=== PATIENT | female | born 1985 | race Caucasian/White ===

== ENCOUNTER 2021-02-15 09:09 | Emergency (ER) | payer MEDICAID, SELFPAY ==
[2021-02-15 09:10] VITALS: BP 156/69; PULSE 68; RESP 20; TEMP 37; O2SAT 100; BMI 27.4
--- NOTE | 2021-02-15 09:17 | [facility].EDGENADL ---
ED Disposition Clinical Impression: Vaginal bleeding Disposition: Home, Self-Care Condition on Discharge: Fair Instructions: DI for Vaginal Bleeding Additional Instructions: You have been evaluated for vaginal bleeding. Blood test today is negative. Please follow-up with your [facility] in 24 to 48 hours for recheck. Return to the emergency department if you have any new or worsening symptoms, pain, syncope, worsening bleeding, other concerns. Referrals: PCP,No [Primary Care Provider] - Time of Disposition: 10:05 - Critical Care Critical Care Time: No Attestation: On 02/15/21, the high probability of a clinically significant, sudden or life threatening deterioration of the following system(s) required my full and direct attention, intervention and personal management. The time I documented below is in addition to time spent performing reported procedures but includes the following listed in this critical care notation. Medical Decision Making - Medical Records Medical records reviewed: Yes: I reviewed the patient's medical records. - Rickey Inquiry Pt receiving controlled substance: No Vital Signs: 02/15/21 09:10 Temperature 98.6 F Temperature Source Oral Pulse Rate [Left Radial] 68 Respiratory Rate 20 Blood Pressure [Right Arm] 156/69 H Blood Pressure Mean [Right Arm] 98 Blood Pressure Source [Right Arm] Automatic Cuff Blood Pressure Position [Right Arm] Sitting 02 Sat by Pulse Oximetry 100 Oxygen Delivery Method Room Air - Lab Data Lab Results 02/15/21 09:20: WBC 11.8 H, RBC 4.85, Hgb 14.2, Hct 41.8, MCV 86.1, MCH 29.3, MCHC 34.0, RDW 13.7, Plt Count 382, MPV 6.9 L, Neut % (Auto) 72.3, Lymph % (Auto) 22.0, Lea % (Auto) 3.4, Eos % (Auto) 2.0, Baso % (Auto) 0.3, Neut # (Auto) 8.5 H, Lymph # (Auto) 2.6, Lea # (Auto) 0.4, Eos # (Auto) 0.2, Baso # (Auto) 0.0 02/15/21 09:20: Serum HCG, Qual Negative 02/15/21 09:20: Blood Type A Positive 02/15/21 09:25: Urine Color Yellow, Urine Appearance Cloudy, Urine pH 5.5, Ur Specific Harbinger >= 1.030, Urine Protein Negative, Urine Glucose (UA) Negative, Urine Ketones Negative, Urine Blood 3+, Urine Nitrate Negative, Urine Bilirubin Negative, Urine Urobilinogen 0.2, Ur Leukocyte Esterase Trace, Urine RBC 20-50, Urine WBC Occasional, Ur Squamous Epith Cells 10-20, Urine Bacteria None 02/15/21 09:25: Urine HCG, Qual Negative Result diagrams: 02/15/21 09:20 Orders (Tests/Meds): ORDERS Category Date Time Status Type and Screen Stat BBK 02/15/21 09:20 Results Medical Decision Narrative: In summary this is a 35-year-old G2, P1 female presenting to the emergency department with vaginal spotting. Patient clinically stable on arrival. Vital signs within normal limits. Concern for implantation bleed, intrauterine , threatened miscarriage, normal menses, extrauterine . Will obtain CBC, type and screen, qualitative hCG, urinalysis. Urinalysis shows few red blood cells. No infection. Urine negative. Serum beta hCG negative. Laboratory results show no significant anemia or other abnormality. Patient counseled on the findings, she does not appear to be at this time. Recommended close follow up with OBGYN. Stable for discharge. General Adult HPI - General Stated complaint: 5 weeks and bleeding Time Seen by Provider: 02/15/21 09:17 Mode of Arrival: Ambulatory Source of Information: Patient Limitations: No Limitations - History of Present Illness HPI narrative: 35-year-old female presenting to the emergency department with vaginal bleeding. Symptoms started this morning. Initially was a few spots of brownish blood. Then was enough to fill a menstrual pad. She is 5 weeks by home test and last menstrual period. Last menses was mid December. She is . Has not had her confirmed by ultrasound. No abdominal cramping. No pain. Some nausea over the last few days.
[2021-02-15 09:33] LABS: Microscopic, Urine URINE MICROSCOPIC (MICROSCOPIC)
[2021-02-15 09:36] LABS: Appearance,Urine CLOUDY (Clear); Bilirubin,Urine Negative (Negative); Blood, Urine 3+ (Negative); Color,Urine YELLOW (Yellow); Glucose,Urine (UA) Negative (Negative); Ketones,Urine Negative (Negative); Leukocyte Esterase,Urine TRACE (Negative); Nitrate,Urine Negative (Negative); PH,Urine 5.5 (5.0-8.5); Protein,Urine Negative (Negative); Specific Gravity, Urine >= 1.030 (1.005-1.030); Urobilinogen,Urine 0.2 EU/dl (0.2)
[2021-02-15 09:38] LABS: Basophils % 0.3 % (0.1-2.0); Eosinophils # 0.2 K/mm3 (0.0-0.4); Hematocrit 41.8 % (37.0-47.0); Hemoglobin 14.2 g/dL (12.2-16.2); Lymphocytes # 2.6 K/mm3 (0.7-4.5); Mean Corpuscular Hemoglobin 29.3 pg (27.0-31.2); Mean Corpuscular Volume 86.1 fl (81-99); Mean Platelet Volume 6.9 fl (7.4-10.4); Monocytes # 0.4 K/mm3 (0.1-1.0); Monocytes % 3.4 % (1.7-9.3); Neutrophils # 8.5 K/mm3 (1.8-7.8); Neutrophils % 72.3 % (37.0-80.0); Platelet Count 382 K/mm3 (142-424); Red Blood Count 4.85 M/mm3 (4.20-5.40); Red Cell Distribution Width 13.7 % (11.5-17.5); White Blood Count 11.8 K/mm3 (4.8-10.8)
[2021-02-15 09:39] LABS: Urine Pregnancy, HCG Qual. Negative (Negative)
[2021-02-15 09:44] LABS: RBC,Urine 20-50 #/hpf (0-3); WBC,Urine Occasional #/hpf (0-3)
[2021-02-15 09:49] LABS: HCG Qualitative, Serum Negative (Negative)
[2021-02-15 10:28] VITALS: BP 125/71; PULSE 62; RESP 18; TEMP 37; O2SAT 99
== END 2021-02-15 10:30 | disposition home or self-care (01) ==
PROVIDERS: Emergency Provider Emergency Medicine
DX: O20.8 Other hemorrhage in early pregnancy (principal); Z3A.01 Less than 8 weeks gestation of pregnancy; Z88.0 Allergy status to penicillin
CPT/HCPCS: 81001; 81025; 84703; 85025; 86850; 99282